=== PATIENT | female | born 1955 | race Caucasian/White ===

== ENCOUNTER → 2017-12-14 | Day surgery (SDC) | payer OTHER ==
[~2017-12-14] MED LIST: ATORVASTATIN CA10 M1 PO; POTASSIUM99 M1 PO; TOPROL XL100 M1 PO; TRAMADOL HCL50 M1 PO; WELLBUTRIN XL150 M2 PO
--- NOTE | 2017-12-14 11:58 | Operative Report ---
Operative/Inv Procedure Report Surgery Date: 12/14/17 Name of Procedure: Laparoscopic cholecystectomy Pre-Operative Diagnosis: Biliary colic Post-Operative Diagnosis: Same Estimated Blood Loss: scant Surgeon/Mlt: Jeovanny MENDOSA,Zay Martinez/Carla PAUL Anesthesia: general endotracheal tube Drains: None Specimens: Gallbladder Operative/Procedure Note Note: After informed consent patient is brought to the operating room and laid supine. General anesthesia was obtained and her abdomen was prepped and draped. The skin above the umbilicus infiltrated with local anesthesia and a curvilinear incision made sharply. We came down through the subcutaneous tissues bluntly and grasped the fascia with Viviana's. A fasciotomy was created sharply and stay sutures placed. The peritoneum was entered sharply and a blunt Vargas port was placed. Pneumoperitoneum was achieved. 3, 5 mm ports were placed in the epigastrium and right upper quadrant after local anesthesia was instilled and under direct vision the camera. She's placed in reverse Trendelenburg and rotated towards the left. The gallbladder is identified. It was grasped at the dome and retracted towards the head. Infundibulum was then grasped. Adhesions to the undersurface were taken down with blunt and cautery dissection. We dissected both sides the triangle [place] peritoneal tissue with cautery. A small hole in the gallbladder was made inadvertently with scant bile spillage. The artery was medial and its normal anatomic position. It was cauterized medially to allow it to be mobilized away from the duct. [place] was cleared of areolar tissue with cautery. The arteries and duct were doubly ligated with clips. Gallbladder is removed from the fossa electrocautery. It was placed in Endo Catch bag and cinched up. Right upper quadrant was and suction irrigated normal saline. Hemostasis achieved with cautery. The ports were then removed and the gallbladder delivered and passed off the field. The fascia was closed with 0 Vicryl suture. Skin incisions closed with 4-0 Vicryl. Steri-Strips and sterile dressing applied. Sponge and needle counts are correct. CC: Ryan MENDOSA,Li
== END ==
LOC: STS 01:16
DX: K80.10 Calculus of gallbladder with chronic cholecystitis without obstruction (principal); I10 Essential (primary) hypertension; E78.00 Pure hypercholesterolemia, unspecified
CPT/HCPCS: 36415; C9399; J1580; J2250